=== PATIENT | female | born 1980 | race Caucasian/White ===

== ENCOUNTER 2017-05-13 06:48 | Day surgery (SDC) | payer OTHER ==
[~2017-05-13] VITALS: Ht 160 cm; Wt 99.8 kg
[~2017-05-13 06:48] MED LIST: PRENATAL VITAM1 EACH PO
--- NOTE | 2017-05-13 11:36 | NUR ---
05/13/17 1136 Kraen Dean 1124-PATIENT ARRIVED TO PACU ON 6L MASK O2 SAT 100% PATIENT AWAKE DENIES PAIN OR NAUSEA. ST HR 115. IVF INFUSING. PER [employer]OR[employer] COMMENTATOR GIVE AN ADDITIONAL 1 LITER OF LR. PLAN FOR LAB TO DRAW H&H. 1136-PATIENT AWAKE DENIES PAIN OR NAUSEA.
--- NOTE | 2017-05-13 13:53 | NUR ---
MOD RED DRAINAGE ON PERIPAD.
--- NOTE | 2017-05-13 13:53 | NUR ---
NOT PUTTING URINE OUT MUCH SO CATHETER NOT REMOVED YET. ENC TO DRINK MORE.
[2017-05-13] MEDS ORDERED: IBUPROFEN800 MG PO ×2 (14:13→14:14)
[2017-05-13] MEDS ORDERED: NORCO 5-325 TA1 EACH PO (14:14)
[2017-05-13] MEDS ORDERED: FERROUS SULFAT325 MG PO (14:15)
--- NOTE | 2017-05-13 15:28 | NUR ---
ATE SANDWICH. DENIES NAUSEA. AMB TO BR VOIDS 100MLS YELLOW URINE. WANTS TO GO HOME. GETTING DRESSED.
--- NOTE | 2017-05-13 21:19 | OR ---
[facility] [address] [place], [place] [address] Signed DATE OF OPERATION: 05/13/2017 SURGEON: Shayla Dubose MD PREOPERATIVE DIAGNOSIS: A 37-year-old 1, para 1, last menstrual period 02/02/2017, approximately 13-week missed , about 11-week sized on ultrasound. Missed with an anencephaly. POSTOPERATIVE DIAGNOSES: A 37-year-old 1, para 1, last menstrual period 02/02/2017, approximately 13-week missed , about 11-week sized on ultrasound. Missed with an anencephaly. Uterine atony/hemorrhage. PROCEDURE: Suction dilation and curettage. ANESTHESIA: General endotracheal per Rikki Lane CRNA. IV FLUIDS: In 1700 mL of lactated Ringer's. URINE OUTPUT: 100 mL straight cath. ESTIMATED BLOOD LOSS: 1400 mL. PATHOLOGY: Products of conception. COMPLICATIONS: Uterine atony. The patient received methargen 0.2 mg IM and 1 g of Cytotec per rectum. FINDINGS: 13 cm size uterus dilated to size 10 Elizabeth smooth dilator. PROCEDURE TECHNIQUE: The patient was taken back to the operating room where she was placed on the operating Electronically Signed By: SHAYLA DUBOSE MD 05/13/17 2119 PATIENT NAME: NAVI TORIBIO OPERATIVE REPORT DATE OF : 84 PHYSICIAN: SHAYLA DUBOSE MD REPORT #: [id number] REPORT IS CONFIDENTIAL AND NOT TO BE RELEASED WITHOUT AUTHORIZATION [facility] [address], [place] [address] Signed table in supine position, underwent general endotracheal anesthesia with rapid sequence intubation and subsequently her IV access was compromised and was changed to her left forearm. She was then placed in the Ethan stirrups and repositioned in a dorsal lithotomy position. She was prepped and draped in normal sterile fashion and a straight catheterization of the bladder was performed. A weighted sterile speculum was then placed into the vagina and a single-tooth tenaculum placed onto the anterior lip of the cervix. Uterus was sounded to 13 cm and the cervix was then again serially dilated up to a size 10 Elizabeth smooth dilator. A size 10 curved suction curette was then used and suction curettage was then performed after filling first canister. There was poor suction and canisters were switched over. A sharp curettage was then performed and subsequently a large amount of products of conception was grasped and removed and suction curettage was then restarted and the uterus was noted to slowly respond to treatment after the patient received both Methergine and the Cytotec suppository. The uterus then was noted to become firm and smaller in size. The suction curettage was removed and manual massage of the uterus was performed. There was no further bleeding and the single-tooth tenaculum was removed from the anterior lip of the cervix. Ring forceps were placed over those tenaculum sites for further hemostasis and subsequently taken. The patient was awakened and extubated. Sponge and instrument counts were correct and a Gore catheter was placed due to large amounts of IV fluids that she would be receiving in the recovery. Shayla K Derwood, MD JKM/MODL /[id number] Electronically Signed By: SHAYLA DUBOSE MD 05/13/17 2119 PATIENT NAME: NAVI TORIBIO OPERATIVE REPORT DATE OF : 84 PHYSICIAN: SHAYLA DUBOSE MD REPORT #: [id number] REPORT IS CONFIDENTIAL AND NOT TO BE RELEASED WITHOUT AUTHORIZATION
== END 2017-05-13 15:25 | disposition home or self-care (01) ==
LOC: DS 06:48
PROVIDERS: Obstetrics & Gynecology
PROC: 10D17ZZ Extraction of Products of Conception, Retained, Via Natural or Artificial Opening (ICD-10-PCS; principal; 2017-05-13 09:00)
DX: O02.1 Missed abortion (principal); F43.22 Adjustment disorder with anxiety; E66.9 Obesity, unspecified; Z68.39 Body mass index [BMI] 39.0-39.9, adult; Z98.890 Other specified postprocedural states
CPT/HCPCS: 00952; 36415; 80048; 81001; 85025; 85027; J2250; J2405; J2704; J2765; J3010; J7120